=== PATIENT | male | born 1955 | race Caucasian/White ===

== ENCOUNTER 2018-09-04 10:24 | Emergency (ER) | payer BC ==
--- NOTE | 2018-09-04 10:38 | EDM.PDOC ---
ED HPI GENERAL MEDICAL PROBLEM - General Chief Complaint: Chest Pain Stated Complaint: RT SIDE AND SHOULDER PAIN Time Seen by Provider: 09/04/18 10:38 Source of Information: Reports: Patient History Limitations: Reports: No Limitations - History of Present Illness INITIAL COMMENTS - FREE TEXT/NARRATIVE: 62-year-old male attends the ED because of right lower anterior lateral chest pain that started yesterday morning that awoke him from sleep. States the pain started along his right lower costal margin seemed to radiate up towards his right shoulder. Pain is somewhat better when he is up and walking it's worse with lying down. To sleep in the easy chair last night because the pain was too bad when he lied down. There is a pleuritic component to the pain I eats made worse by deep breathing. He reports that he's been on a very fast tripped down to [place]. States 2 days down 2 days then 2 days back. Has not no cine swelling or pain in his calves or legs. No previous history of DVT. Denies cough or sputum production and in particular no hemoptysis. States he thinks he had had some chills last night. No fever identified. Vital signs reveal O2 sats of 95% on room air. He used to smoke for about 18 years and quit in 1991. He has significant hypertension and hypercholesterolemia with no known heart attack or heart failure Onset: Sudden Onset Date: 09/03/18 Onset Time: 04:00 (Awoken from sleep with right anterior lateral chest pain that radiates up to the right shoulder. Worsens by deep breathing) Duration: Hour(s):, Getting Worse Location: Reports: Chest (Right anterior lower chest.) Quality: Reports: Ache, Sharp, Stabbing Severity: Moderate (Rates his pain is 6-710) Improves with: Reports: Rest, Other (Is also better presupper and walking.) Worsens with: Reports: Other (Worsens when he lies flat. States he had to sleep in the easy chair last night) Context: Denies: Activity, Exercise, Lifting, Sick Contact, Trauma, Other Associated Symptoms: Reports: Chest Pain, Fever/Chills, Shortness of Breath ( Very mildly shortness of breath when he lies down.). 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: Other (see below) (None.) Right Chest Pain Score (Numeric/FACES): 6 Right Anterior Shoulder Pain Score (Numeric/FACES): 6 - Related Data Allergies Allergy/AdvReac Type Severity Reaction Status Date / Time No Known Allergies Allergy Verified 09/04/18 10:36 Home Meds: Home Meds Losartan/Hydrochlorothiazide [Losartan-HCTZ 50-12.5 MG] 1 tab PO DAILY 09/04/18 [History] Metoprolol Succinate 100 mg PO DAILY 09/04/18 [History] Rivaroxaban [Xarelto] 15 mg PO BID #42 tablet 09/04/18 [Rx] Rivaroxaban [Xarelto] 20 mg PO DAILY #35 tablet 09/04/18 [Rx] amLODIPine [Norvasc] 10 mg PO DAILY 09/04/18 [History] atorvaSTATin [Lipitor] 10 mg PO BEDTIME 09/04/18 [History] oxyCODONE HCl/Acetaminophen [Percocet 5-325 mg Tablet] 1 - 2 each PO Q4H PRN # 16 tablet 09/04/18 [Rx] Past Medical History Cardiovascular History: Reports: High Cholesterol, Hypertension Musculoskeletal History: Reports: Osteoarthritis (Mostly involving his hands knees hips and low back) Social & Family History - Tobacco Use Smoking Status *Q: Former Smoker Tobacco Use Within Last Twelve Months: Cigarettes (Quit in 1991. Has an 18-pack- year history) - Alcohol Use Alcohol Use History: Yes ED ROS GENERAL - Review of Systems Review Of Systems: See Below Constitutional: Reports: Chills. Denies: Fever, Malaise (Reported some chills last night), Weakness, Decreased Appetite HEENT: Reports: No Symptoms Respiratory: Reports: Shortness of Breath, Pleuritic Chest Pain (Strong pleuritic component to his right anterior lateral chest pain). Denies: Wheezing (Mild shortness of breath particularly noted when he's lying down.), Cough, Sputum, Hemoptysis Cardiovascular: Reports: Chest Pain, Blood Pressure Problem (Right anterior lateral chest pain along the costal margin which radiates up towards the right shoulder.), Dyspnea on Exertion, Orthopnea ( Hypertension.). Denies: Claudication, Edema, Lightheadedness, Palpitations Endocrine: Reports: No Symptoms GI/Abdominal: Reports: No Symptoms : Reports: Frequency, Other (Bacteria once or twice nightly) Musculoskeletal: Reports: Joint Pain (Knees hips low back at times), Muscle Pain Neurological: Reports: No Symptoms Psychiatric: Reports: No Symptoms Hematologic/Lymphatic: Reports: No Symptoms Immunologic: Reports: No Symptoms ED EXAM, GENERAL - Physical Exam Exam: See Below Exam Limited By: No Limitations General Appearance: Alert, WD/WN, Mild Distress, Other (Respiratory is 18 O2 sats are 95% on room air. BP is a little elevated at 1 6174. He is afebrile. Heart rate is 86 in sinus.) Eye Exam: Bilateral Eye: Normal Inspection Throat/Mouth: Normal Inspection, Normal Lips, Normal Oropharynx Head: Atraumatic, Normocephalic Neck: Normal Inspection, Supple, Non-Tender, Full Range of Motion. No: Carotid Bruit, Lymphadenopathy (L), Lymphadenopathy (R), Thyromegaly Respiratory/Chest: No Respiratory Distress, Lungs Clear, Normal Breath Sounds, No Accessory Muscle Use, Chest Non-Tender Cardiovascular: Normal Peripheral Pulses, Regular Rate, Rhythm, No Edema, No Gallop, No Murmur, No Rub Peripheral Pulses: 2+: Posterior Tibial (L), Posterior Tibial (R), Dorsalis Pedis (L), Dorsalis Pedis (R) GI/Abdominal: Normal Bowel Sounds, Soft, Non-Tender, No Organomegaly, No Abnormal Bruit, No Mass, Pelvis Stable (Male) Exam: No Hernia Back Exam: Normal Inspection, Full Range of Motion. No: CVA Tenderness (L), CVA Tenderness (R) Extremities: Normal Inspection, Normal Range of Motion, Non-Tender, No Pedal Edema, Normal Capillary Refill, Other (There is no evidence of DVT in the calf on either side. There is no edema swelling or localized pain) Psychiatric: Normal Affect, Normal Mood Skin Exam: Warm, Dry, Intact, Normal Color, No Rash EKG INTERPRETATION EKG Date: 09/04/18 Time: 11:23 Rhythm: NSR Rate (Beats/Min): 67 [place]: LAD-Left [place] Deviation (Left axis deviation of -19) P-Wave: Present (Inverted in V1.) QRS: Other (There are Q waves in leads 3 and aVF. Consider old inferior wall myocardial infarction.) ST-T: Other (There is T-wave inversion one in aVL consider ischemia) QT: Prolonged EKG Interpretation Comments: Abnormal ECG Course - Vital Signs Last Recorded V/S: Last Vital Signs Temp 36.7 C 09/04/18 10:32 Pulse 86 09/04/18 10:32 Resp 18 09/04/18 10:32 BP 161/74 H 09/04/18 10:32 Pulse Ox 95 09/04/18 10:32 - Orders/Labs/Meds Labs: Laboratory Tests 09/04/18 09/04/18 09/04/18 Range/Units 11:00 11:00 11:00 WBC 9.69 H (4.23-9.07) K/mm3 RBC 4.32 L (4.63-6.08) M/mm3 Hgb 13.7 (13.7-17.5) gm/L Hct 41.7 (40.1-51.0) % MCV 96.5 H (79.0-92.2) fl MCH 31.7 (25.7-32.2) pg MCHC 32.9 (32.2-35.5) g/dl RDW Std Deviation 43.9 (35.1-43.9) fL Plt Count 224 (163-337) K/mm3 MPV 10.3 (9.4-12.3) fl Neutrophils % (Manual) 79 H (40-60) % Band Neutrophils % 0 (0-10) % Lymphocytes % (Manual) 11 L (20-40) % Atypical Lymphs % 0 % Monocytes % (Manual) 9 (2-10) % Eosinophils % (Manual) 1 (0.8-7.0) % Basophils % (Manual) 0 L (0.2-1.2) Platelet Estimate Adequate RBC Morph Comment Normal PT 11.2 (9.5-12.1) SECONDS INR 1.03 APTT 32 H (24-31) SECONDS D-Dimer, Quantitative 2.66 H (0.19-0.50) mg/L Functional Protein C (73-180) % Functional Protein S (63-140) % Antithrombin III Activ (75-135) % Sodium 140 (136-145) mEq/L Potassium 3.9 (3.5-5.1) mEq/L Chloride 103 (98-107) mEq/L Carbon Dioxide 21 (21-32) mEq/L Anion Gap 19.9 H (5-15) BUN 26 H (7-18) mg/dL Creatinine 1.7 H (0.7-1.3) mg/dL Est Cr Clr Drug Dosing 45.05 mL/min Estimated GFR (MDRD) 41 (>60) mL/min BUN/Creatinine Ratio 15.3 (14-18) Glucose 114 (80-115) mg/dL Calcium 9.0 (8.5-10.1) mg/dL Magnesium 2.1 (1.8-2.4) mg/dl Total Bilirubin 0.9 (0.2-1.0) mg/dL AST 22 (15-37) U/L ALT 27 (16-63) U/L Alkaline Phosphatase 76 (46-116) U/L Lactate Dehydrogenase (85-227) U/L CK-MB (CK-2) 1.0 (0-3.6) ng/ml Troponin I < 0.017 (0.00-0.056) ng/mL NT-Pro-B Natriuret Pep (0-125) pg/mL Total Protein 8.4 H (6.4-8.2) g/dl Albumin 3.4 (3.4-5.0) g/dl Globulin 5.0 gm/dL Albumin/Globulin Ratio 0.7 L (1-2) Ketones (0.0-0.3) mM Anti-Cardiolipin IgG Ab (0-14) GPL U/mL 09/04/18 09/04/18 09/04/18 Range/Units 11:00 11:00 11:00 WBC (4.23-9.07) K/mm3 RBC (4.63-6.08) M/mm3 Hgb (13.7-17.5) gm/L Hct (40.1-51.0) % MCV (79.0-92.2) fl MCH (25.7-32.2) pg MCHC (32.2-35.5) g/dl RDW Std Deviation (35.1-43.9) fL Plt Count (163-337) K/mm3 MPV (9.4-12.3) fl Neutrophils % (Manual) (40-60) % Band Neutrophils % (0-10) % Lymphocytes % (Manual) (20-40) % Atypical Lymphs % % Monocytes % (Manual) (2-10) % Eosinophils % (Manual) (0.8-7.0) % Basophils % (Manual) (0.2-1.2) Platelet Estimate RBC Morph Comment PT (9.5-12.1) SECONDS INR APTT (24-31) SECONDS D-Dimer, Quantitative (0.19-0.50) mg/L Functional Protein C (73-180) % Functional Protein S (63-140) % Antithrombin III Activ (75-135) % Sodium (136-145) mEq/L Potassium (3.5-5.1) mEq/L Chloride (98-107) mEq/L Carbon Dioxide (21-32) mEq/L Anion Gap (5-15) BUN (7-18) mg/dL Creatinine (0.7-1.3) mg/dL Est Cr Clr Drug Dosing mL/min Estimated GFR (MDRD) (>60) mL/min BUN/Creatinine Ratio (14-18) Glucose (80-115) mg/dL Calcium (8.5-10.1) mg/dL Magnesium (1.8-2.4) mg/dl Total Bilirubin (0.2-1.0) mg/dL AST (15-37) U/L ALT (16-63) U/L Alkaline Phosphatase (46-116) U/L Lactate Dehydrogenase 268 H (85-227) U/L CK-MB (CK-2) (0-3.6) ng/ml Troponin I (0.00-0.056) ng/mL NT-Pro-B Natriuret Pep 365 H (0-125) pg/mL Total Protein (6.4-8.2) g/dl Albumin (3.4-5.0) g/dl Globulin gm/dL Albumin/Globulin Ratio (1-2) Ketones 0.2 (0.0-0.3) mM Anti-Cardiolipin IgG Ab (0-14) GPL U/mL 09/04/18 09/04/18 09/04/18 Range/Units 13:58 13:58 13:58 WBC (4.23-9.07) K/mm3 RBC (4.63-6.08) M/mm3 Hgb (13.7-17.5) gm/L Hct (40.1-51.0) % MCV (79.0-92.2) fl MCH (25.7-32.2) pg MCHC (32.2-35.5) g/dl RDW Std Deviation (35.1-43.9) fL Plt Count (163-337) K/mm3 MPV (9.4-12.3) fl Neutrophils % (Manual) (40-60) % Band Neutrophils % (0-10) % Lymphocytes % (Manual) (20-40) % Atypical Lymphs % % Monocytes % (Manual) (2-10) % Eosinophils % (Manual) (0.8-7.0) % Basophils % (Manual) (0.2-1.2) Platelet Estimate RBC Morph Comment PT (9.5-12.1) SECONDS INR APTT (24-31) SECONDS D-Dimer, Quantitative (0.19-0.50) mg/L Functional Protein C 76 (73-180) % Functional Protein S (63-140) % Antithrombin III Activ 95 (75-135) % Sodium (136-145) mEq/L Potassium (3.5-5.1) mEq/L Chloride (98-107) mEq/L Carbon Dioxide (21-32) mEq/L Anion Gap (5-15) BUN (7-18) mg/dL Creatinine (0.7-1.3) mg/dL Est Cr Clr Drug Dosing mL/min Estimated GFR (MDRD) (>60) mL/min BUN/Creatinine Ratio (14-18) Glucose (80-115) mg/dL Calcium (8.5-10.1) mg/dL Magnesium (1.8-2.4) mg/dl Total Bilirubin (0.2-1.0) mg/dL AST (15-37) U/L ALT (16-63) U/L Alkaline Phosphatase (46-116) U/L Lactate Dehydrogenase (85-227) U/L CK-MB (CK-2) (0-3.6) ng/ml Troponin I (0.00-0.056) ng/mL NT-Pro-B Natriuret Pep (0-125) pg/mL Total Protein (6.4-8.2) g/dl Albumin (3.4-5.0) g/dl Globulin gm/dL Albumin/Globulin Ratio (1-2) Ketones (0.0-0.3) mM Anti-Cardiolipin IgG Ab <9 (0-14) GPL U/mL 09/04/18 Range/Units 13:58 WBC (4.23-9.07) K/mm3 RBC (4.63-6.08) M/mm3 Hgb (13.7-17.5) gm/L Hct (40.1-51.0) % MCV (79.0-92.2) fl MCH (25.7-32.2) pg MCHC (32.2-35.5) g/dl RDW Std Deviation (35.1-43.9) fL Plt Count (163-337) K/mm3 MPV (9.4-12.3) fl Neutrophils % (Manual) (40-60) % Band Neutrophils % (0-10) % Lymphocytes % (Manual) (20-40) % Atypical Lymphs % % Monocytes % (Manual) (2-10) % Eosinophils % (Manual) (0.8-7.0) % Basophils % (Manual) (0.2-1.2) Platelet Estimate RBC Morph Comment PT (9.5-12.1) SECONDS INR APTT (24-31) SECONDS D-Dimer, Quantitative (0.19-0.50) mg/L Functional Protein C (73-180) % Functional Protein S 98 (63-140) % Antithrombin III Activ (75-135) % Sodium (136-145) mEq/L Potassium (3.5-5.1) mEq/L Chloride (98-107) mEq/L Carbon Dioxide (21-32) mEq/L Anion Gap (5-15) BUN (7-18) mg/dL Creatinine (0.7-1.3) mg/dL Est Cr Clr Drug Dosing mL/min Estimated GFR (MDRD) (>60) mL/min BUN/Creatinine Ratio (14-18) Glucose (80-115) mg/dL Calcium (8.5-10.1) mg/dL Magnesium (1.8-2.4) mg/dl Total Bilirubin (0.2-1.0) mg/dL AST (15-37) U/L ALT (16-63) U/L Alkaline Phosphatase (46-116) U/L Lactate Dehydrogenase (85-227) U/L CK-MB (CK-2) (0-3.6) ng/ml Troponin I (0.00-0.056) ng/mL NT-Pro-B Natriuret Pep (0-125) pg/mL Total Protein (6.4-8.2) g/dl Albumin (3.4-5.0) g/dl Globulin gm/dL Albumin/Globulin Ratio (1-2) Ketones (0.0-0.3) mM Anti-Cardiolipin IgG Ab (0-14) GPL U/mL Meds: Medications Discontinued Medications Generic Name Dose Route Start Last Admin Trade Name Brandanq PRN Reason Stop Dose Admin Enoxaparin Sodium 115 mg 09/04/18 13:35 09/04/18 14:09 Lovenox SUBCUT 09/04/18 13:36 115 mg ONETIME ONE Administration Sodium Chloride 1,000 mls @ 150 mls/hr 09/04/18 10:45 09/04/18 11:05 Normal Saline IV 150 mls/hr ASDIRECTED MARIELA Administration Sodium Chloride 1,000 mls @ 500 mls/hr 09/04/18 12:15 Normal Saline IV ASDIRECTED MARIELA Sodium Chloride 100 mls @ 60 mls/hr 09/04/18 12:30 09/04/18 12:30 Normal Saline IV 60 mls/hr ASDIRECTED MARIELA Administration Iohexol 75 ml 09/04/18 12:18 09/04/18 12:30 Omnipaque IVPUSH 09/04/18 12:19 75 ml ONETIME ONE Administration Sodium Chloride 10 ml 09/04/18 12:18 09/04/18 12:30 Saline Flush FLUSH 09/04/18 12:19 10 ml ONETIME ONE Administration - Radiology Interpretation Free Text/Narrative:: 62-year-old male presents to the ED for evaluation of right anterior lateral chest pain with a strong pleuritic component. This has occurred after an aggressive trip in a car to [place] and back within 5 days. States the day and a half to get their 2 days there and 2 days to come back. He woke with right anterior lateral chest pain along the costal margin yesterday morning about 4: 00 in the morning and is persisted since that time. Last and it was worse and he could not lie flat on a orthopnea. He had a set up in the easy chair last night to sleep. Denies development of any cough or sputum production or hemoptysis. He has no past history of DVT. Chest pain is along the right costal margin and radiates up towards his right shoulder particularly when he lies down. It is worsened by deep breath. No evidence of DVT on examination of the lower extremities. His stream is strongly suggestive of possible PE. O2 sats are 95% on room air. Plan routine labs including d-dimer cardiac markers. He will also be done since he has a history of severe hypertension for many years. One view chest x-ray will be obtained and ECG. - Re-Assessments/Exams Free Text/Narrative Re-Assessment/Exam: 09/04/18 11:33 chest x-ray done portably reveals a very poor inspiratory film. He appears to have moderate cardiomegaly. It appears to have diffuse vascular congestion by portable technique again less than satisfactory exam. 09/04/18 11:37 lab called over and his d-dimer is elevated at 2.66. Will await his renal function but it. We will be proceeding with CT pulmonary angiogram 09/04/18 12:07 WBC is 9.69 with 79% neutrophils and no band cells hemoglobin is 13.7 with hematocrit of 41.7. MCV is 96.5. Platelet count is 224,000. PT is 11.2 with an INR of 1.03. PTT is 32. D-dimer is elevated at 2.66. Sodium was 140 with potassium of 3.9. Toward 103 with a bicarbonate of 21. Anion gap is elevated at 19.9. BUN is 26. Ranitidine is 1.7. GFR is 41 a stage III chronic kidney disease. Glucose is 114. Calcium is 9.0. Magnesium is 2.1. Liver function is normal CK-MB is 1.0 troponin I is less than 0.017. BNP is mildly elevated at 365. Total protein is 8.4. Albumin fraction is 3.4. 09/04/18 12:48 serum ketones are 0.2 normal. LDH is mildly elevated at 268. 09/04/18 13:36 radiologist reports that there is a small filling defect seen within a subsegmental branch of the right lower pulmonary artery which is felt compatible with small pulmonary embolism. Mediastinum and hilar regions show adenopathy or mass. Mild coronary artery calcification is noted a pericardial thickening is seen trace pleural effusion noted on the right side with mild atelectasis within the right lung base. This is likely because he is splinting. He will therefore be given initial dose of Lovenox 115 mg subcutaneously in the ED. The plan will then be to start him on Xarelto 15 mg twice daily for 3 weeks and then 20 mg once daily to complete a minimum of 3 months treatment. He'll have his labs drawn for protein S, protein C, cardiolipin antibodies, anti- thrombin etc. I'm going to send him home with some Percocet tablets to be used on a when necessary basis due to the nature of his right pleuritic chest pain suggesting that he may be developing a pulmonary infarct. His LDH is only slightly elevated. However he can't lie flat due to the severity of pain indicating the pleura is definitely involved. Use these when not at work and until the pleuritic pain settles down. Advised him to follow-up with Dr. Foy in about 10 days time. Departure - Departure Time of Disposition: 13:45 Disposition: Home, Self-Care 01 Condition: Fair Clinical Impression: Pulmonary embolism and infarction Prescriptions: oxyCODONE HCl/Acetaminophen [Percocet 5-325 mg Tablet] 1 - 2 each PO Q4H PRN # 16 tablet PRN Reason: pain relief. Rivaroxaban [Xarelto] 15 mg PO BID #42 tablet Rivaroxaban [Xarelto] 20 mg PO DAILY #35 tablet Instructions: Pulmonary Embolism Referrals: Abiodun Conti MD [Primary Care Provider] - Forms: ED Department Discharge Additional Instructions: Evaluation the emergent today in regards to development of strong pleuritic sharp stabbing pain in the right lower lung anterior chest over the last 2 days. Recent travel to [place] and back driving pretty well straight through likely was the cause of the development of a blood clot that we identified on CT angiogram of the chest in your right lower lobe of lung. Is far as we could see there was only one blood clot. There was a little bit of inflammation or fluid in the bottom of the right lung which is causing your current pain syndrome. Therefore clinically was no evidence of blood clot in your lower extremity although almost all clots come from somewhere in the legs and get up into the lung from the lower extremities. You were treated with initial dose of blood thinner low Lovenox 150 mg subcutaneously. You are to start medication Xarelto-15 mg after supper tonight. Is medication is to be taken twice daily for the next 3 weeks and then after this you're to take 20 mg tablet for the next 2 months. I've written a prescription for Percocet tablets to be taken 5/ 325 mg one or 2 every 4-6 hours as needed when you are not operating a motor vehicle or machinery to help reduce the pain in the right lung until it can heal. It will likely be a week or so before the sharp pain goes away completely. Just follow-up with Dr. Foy in about 10 days time. I have also ordered other blood tests to check whether or not to have a predisposition to forming a blood clot that will help us determine length of need of medication to prevent clotting.
[2018-09-04] MEDS ORDERED: Sodium Chloride 0.9% 1,000 ML IV SCH ×2 (10:45→12:15)
[2018-09-04] MEDS ORDERED: Sodium Chloride 0.9% 10 ML Syringe FLUSH ONE (12:18)
[2018-09-04] MEDS ORDERED: Iohexol 350 MG/ML 75 ML Bottle IVPUSH ONE (12:18)
[2018-09-04] MEDS ORDERED: Sodium Chloride 0.9% 100 ML IV SCH (12:30)
--- NOTE | 2018-09-04 13:00 | CT ---
CT chest Technique: Multiple axial sections through the chest were obtained. Intravenous contrast was utilized. Comparison: Prior chest x-ray performed earlier on the same day, no previous chest CT. Findings: Pulmonary arteries are moderately well-opacified. Small filling defect is seen within a subsegmental branch of the right lower pulmonary artery which is felt compatible with small pulmonary embolism. No other findings of pulmonary embolism are seen. Mediastinum and hilar regions show no adenopathy or mass. Mild coronary artery calcification is noted. No pericardial thickening is seen. Trace pleural effusion noted on the right side with mild atelectasis within the right lung base. Lungs otherwise are clear. Bone window settings show scattered degenerative endplate spurring within the spine. Impression: 1. Small pulmonary embolism within a subsegmental branch within the right lower lung. 2. Small right-sided pleural effusion and right basilar atelectasis. 3. No additional abnormality is seen. Diagnostic code #3
[2018-09-04] MEDS ORDERED: Enoxaparin 100 MG/1 ML Syringe SUBCUT ONE (13:35)
--- NOTE | 2018-09-04 13:48 | CR ---
Chest: Portable view of the chest was obtained. Comparison: No prior chest x-ray. Heart size and mediastinum are normal. Lungs are clear. Bony structures are grossly intact. Pressure: 1. Nothing acute is identified on portable chest x-ray. Diagnostic code #1
== END 2018-09-04 14:15 | disposition home or self-care (01) ==
LOC: JD.ED 10:24
DX: I26.99 Other pulmonary embolism without acute cor pulmonale (principal); I10 Essential (primary) hypertension; E78.00 Pure hypercholesterolemia, unspecified; Z87.891 Personal history of nicotine dependence; Z79.899 Other long term (current) drug therapy
CPT/HCPCS: 36415; 71045; 71275; 80053; 81241; 82009; 82553; 83615; 83735; 83880; 84484; 85007; 85027; 85300; 85303; 85306; 85379; 85610; 85730; 86147; 93005; 96360; 96361; 96372; 99284; J1650; J7030; J7040; Q9967

== ENCOUNTER 2019-01-08 14:13 | Emergency (ER) | payer BC ==
--- NOTE | 2019-01-08 14:25 | EDM.PDOC ---
<GuzmanHenry - Last Filed: 01/08/19 14:55> ED HPI GENERAL MEDICAL PROBLEM - General Chief Complaint: General Stated Complaint: WEAK,SOB Time Seen by Provider: 01/08/19 14:23 Source of Information: Reports: Patient History Limitations: Reports: No Limitations - History of Present Illness INITIAL COMMENTS - FREE TEXT/NARRATIVE: Pt presents to ED today with complaint of fatigue. Pt states that for the past 2 weeks he has been feeling progressively more fatigued. Pt states that he has had similar episodes in the past but they have never lasted this long. Pt reports that he has not been sleeping well. Pt does not feel like he has been ill recently. States he had chills for one day last week. Has lost some weight but feels that his was intentional as he has been eating healthier. Pt reports dizziness upon standing up and that his vision gets 'bright'. He feels lightheaded during these episodes. Pt reports SOB on exertion as well. No nausea , vomiting, diarrhea. No body aches. No chest pain. Onset: Gradual Duration: Week(s): - Related Data Allergies Allergy/AdvReac Type Severity Reaction Status Date / Time No Known Allergies Allergy Verified 01/08/19 14:23 Home Meds: Home Meds Metoprolol Succinate 100 mg PO DAILY 09/04/18 [History] amLODIPine [Norvasc] 10 mg PO DAILY 09/04/18 [History] atorvaSTATin [Lipitor] 10 mg PO BEDTIME 09/04/18 [History] Losartan/Hydrochlorothiazide [Losartan-HCTZ 100-12.5 MG] 1 each PO DAILY [History] ED ROS GENERAL - Review of Systems Review Of Systems: See Below Constitutional: Reports: Chills, Fatigue HEENT: Reports: No Symptoms Cardiovascular: Reports: Dyspnea on Exertion, Lightheadedness Endocrine: Reports: No Symptoms GI/Abdominal: Reports: No Symptoms Musculoskeletal: Reports: No Symptoms Skin: Reports: No Symptoms Neurological: Reports: Dizziness Psychiatric: Reports: No Symptoms Hematologic/Lymphatic: Reports: No Symptoms Immunologic: Reports: No Symptoms ED EXAM, GENERAL - Physical Exam Exam: See Below Exam Limited By: No Limitations General Appearance: Alert, No Apparent Distress Eye Exam: Bilateral Eye: Normal Inspection Ears: Normal External Exam Nose: Normal Inspection Throat/Mouth: Normal Inspection Head: Atraumatic, Normocephalic Neck: Normal Inspection, Supple, Non-Tender, Full Range of Motion. No: Thyromegaly Respiratory/Chest: No Respiratory Distress, Lungs Clear, Normal Breath Sounds, No Accessory Muscle Use. No: Crackles, Rales, Rhonchi, Wheezing Cardiovascular: Normal Peripheral Pulses, Regular Rate, Rhythm, No Edema, Systolic Murmur GI/Abdominal: Normal Bowel Sounds, Soft, Non-Tender, No Organomegaly, Distended Extremities: Normal Inspection, Non-Tender, No Pedal Edema. No: Joint Swelling Neurological: Alert, Oriented, CN II-XII Intact, Normal Cognition, No Motor/ Sensory Deficits Psychiatric: Normal Affect, Normal Mood Skin Exam: Warm, Dry, Intact, Normal Color, No Rash Course - Vital Signs Last Recorded V/S: Last Vital Signs Temp 98.9 F 01/08/19 14: Pulse 95 01/08/19 14:19 Resp 16 01/08/19 14:19 BP 124/58 L 01/08/19 14: Pulse Ox 100 01/08/19 14:19 - Orders/Labs/Meds Orders: Active Orders 24 hr Category Date Time Status Cardiac Monitoring [RC] . DIRECTED Care 01/08/19 15:12 Active EKG Documentation Completion [RC] STAT Care 01/08/19 15:13 Active Peripheral IV Care [RC] . DIRECTED Care 01/08/19 16:02 Active Ang Chest [CT] Stat Exams 01/08/19 16:02 Taken Sodium Chloride 0.9% [Normal Saline] 100 ml Med 01/08/19 16:30 Active IV ASDIRECTED Sodium Chloride 0.9% [Saline Flush] Med 01/08/19 16:02 Active 10 ml FLUSH ASDIRECTED PRN Peripheral IV Insertion Adult [OM.PC] Routine Oth 01/08/19 16:02 Ordered Medication Orders Sodium Chloride (Normal Saline) 100 mls @ 60 mls/hr IV ASDIRECTED MARIELA Sodium Chloride (Saline Flush) 10 ml FLUSH ASDIRECTED PRN PRN Reason: Keep Vein Open Last Admin: 01/08/19 16:40 Dose: 10 ml Labs: Laboratory Tests 01/08/19 01/08/19 01/08/19 Range/Units 15:25 15:25 15:25 WBC 6.23 (4.23-9.07) K/mm3 RBC 3.88 L (4.63-6.08) M/mm3 Hgb 12.0 L D (13.7-17.5) gm/L Hct 36.4 L (40.1-51.0) % MCV 93.8 H (79.0-92.2) fl MCH 30.9 (25.7-32.2) pg MCHC 33.0 (32.2-35.5) g/dl RDW Std Deviation 50.6 H (35.1-43.9) fL Plt Count 274 (163-337) K/mm3 MPV 9.5 (9.4-12.3) fl Neut % (Auto) 66.0 (34.0-67.9) % Lymph % (Auto) 13.3 L (21.8-53.1) % Trigg % (Auto) 18.8 H (5.3-12.2) % Eos % (Auto) 0.8 (0.8-7.0) Baso % (Auto) 0.8 (0.1-1.2) % Neut # (Auto) 4.11 (1.78-5.38) K/mm3 Lymph # (Auto) 0.83 L (1.32-3.57) K/mm3 Trigg # (Auto) 1.17 H (0.30-0.82) K/mm3 Eos # (Auto) 0.05 (0.04-0.54) K/mm3 Baso # (Auto) 0.05 (0.01-0.08) K/mm3 Manual Slide Review Abnormal smear D-Dimer, Quantitative 3.34 H (0.19-0.50) mg/L Sodium 135 L (136-145) mEq/L Potassium 4.0 (3.5-5.1) mEq/L Chloride 103 (98-107) mEq/L Carbon Dioxide 20 L (21-32) mEq/L Anion Gap 16.0 H (5-15) BUN 63 H D (7-18) mg/dL Creatinine 2.3 H (0.7-1.3) mg/dL Est Cr Clr Drug Dosing 32.87 mL/min Estimated GFR (MDRD) 29 (>60) mL/min BUN/Creatinine Ratio 27.4 H (14-18) Glucose 101 (80-115) mg/dL Calcium 8.7 (8.5-10.1) mg/dL Magnesium 2.2 (1.8-2.4) mg/dl Total Bilirubin 0.6 (0.2-1.0) mg/dL AST 91 H (15-37) U/L ALT 127 H (16-63) U/L Alkaline Phosphatase 59 (46-116) U/L Troponin I < 0.017 (0.00-0.056) ng/mL NT-Pro-B Natriuret Pep (0-125) pg/mL Total Protein 7.5 (6.4-8.2) g/dl Albumin 2.4 L (3.4-5.0) g/dl Globulin 5.1 gm/dL Albumin/Globulin Ratio 0.5 L (1-2) TSH 3rd Generation 2.361 (0.358-3.74) uIU/mL Urine Color (Yellow) Urine Appearance (Clear) Urine pH (5.0-8.0) Ur Specific [place] (1.005-1.030) Urine Protein (Negative) Urine Glucose (UA) (Negative) Urine Ketones (Negative) Urine Occult Blood (Negative) Urine Nitrite (Negative) Urine Bilirubin (Negative) Urine Urobilinogen (0.2-1.0) Ur Leukocyte Esterase (Negative) Urine RBC (0-5) /hpf Urine WBC (0-5) /hpf Ur Squamous Epith Cells (0-5) /hpf Urine Bacteria (FEW) /hpf Urine Mucus (FEW) /hpf 01/08/19 01/08/19 Range/Units 15:25 17:33 WBC (4.23-9.07) K/mm3 RBC (4.63-6.08) M/mm3 Hgb (13.7-17.5) gm/L Hct (40.1-51.0) % MCV (79.0-92.2) fl MCH (25.7-32.2) pg MCHC (32.2-35.5) g/dl RDW Std Deviation (35.1-43.9) fL Plt Count (163-337) K/mm3 MPV (9.4-12.3) fl Neut % (Auto) (34.0-67.9) % Lymph % (Auto) (21.8-53.1) % Trigg % (Auto) (5.3-12.2) % Eos % (Auto) (0.8-7.0) Baso % (Auto) (0.1-1.2) % Neut # (Auto) (1.78-5.38) K/mm3 Lymph # (Auto) (1.32-3.57) K/mm3 Trigg # (Auto) (0.30-0.82) K/mm3 Eos # (Auto) (0.04-0.54) K/mm3 Baso # (Auto) (0.01-0.08) K/mm3 Manual Slide Review D-Dimer, Quantitative (0.19-0.50) mg/L Sodium (136-145) mEq/L Potassium (3.5-5.1) mEq/L Chloride (98-107) mEq/L Carbon Dioxide (21-32) mEq/L Anion Gap (5-15) BUN (7-18) mg/dL Creatinine (0.7-1.3) mg/dL Est Cr Clr Drug Dosing mL/min Estimated GFR (MDRD) (>60) mL/min BUN/Creatinine Ratio (14-18) Glucose (80-115) mg/dL Calcium (8.5-10.1) mg/dL Magnesium (1.8-2.4) mg/dl Total Bilirubin (0.2-1.0) mg/dL AST (15-37) U/L ALT (16-63) U/L Alkaline Phosphatase (46-116) U/L Troponin I (0.00-0.056) ng/mL NT-Pro-B Natriuret Pep 517 H (0-125) pg/mL Total Protein (6.4-8.2) g/dl Albumin (3.4-5.0) g/dl Globulin gm/dL Albumin/Globulin Ratio (1-2) TSH 3rd Generation (0.358-3.74) uIU/mL Urine Color Light yellow (Yellow) Urine Appearance Clear (Clear) Urine pH 6.0 (5.0-8.0) Ur Specific [place] 1.010 (1.005-1.030) Urine Protein Negative (Negative) Urine Glucose (UA) Negative (Negative) Urine Ketones Negative (Negative) Urine Occult Blood Trace-lysed H (Negative) Urine Nitrite Negative (Negative) Urine Bilirubin Negative (Negative) Urine Urobilinogen 0.2 (0.2-1.0) Ur Leukocyte Esterase Negative (Negative) Urine RBC 0-5 (0-5) /hpf Urine WBC 0-5 (0-5) /hpf Ur Squamous Epith Cells 0-5 (0-5) /hpf Urine Bacteria Not seen (FEW) /hpf Urine Mucus Not seen (FEW) /hpf Meds: Medications Generic Name Dose Route Start Last Admin Trade Name Freq PRN Reason Stop Dose Admin Sodium Chloride 100 mls @ 60 mls/hr 01/08/19 16:30 Normal Saline IV ASDIRECTED MARIELA Sodium Chloride 10 ml 01/08/19 16:02 01/08/19 16:40 Saline Flush FLUSH 10 ml ASDIRECTED PRN Administration Keep Vein Open Discontinued Medications Generic Name Dose Route Start Last Admin Trade Name Freq PRN Reason Stop Dose Admin Sodium Chloride 1,000 mls @ 1,000 mls/hr 01/08/19 16:59 01/08/19 17:29 Normal Saline IV 01/08/19 17:58 1,000 mls/hr ONETIME ONE Administration Iopamidol 100 ml 01/08/19 16:19 01/08/19 16:40 Isovue-370 (76%) IVPUSH 01/08/19 16:20 100 ml ONETIME ONE Administration Sodium Chloride 10 ml 01/08/19 16:19 Saline Flush FLUSH 01/08/19 16:20 ONETIME ONE - Re-Assessments/Exams Free Text/Narrative Re-Assessment/Exam: 01/08/19 15:18 Will order labs, D-dimer, BNP, TSH. Orthostatic vitals and EKG as well. Departure - Departure Disposition: Home, Self-Care 01 Clinical Impression: Renal insufficiency, Generalized weakness, Heart murmur - Discharge Information Referrals: Abiodun Conti MD [Primary Care Provider] - 1 Week Nino Beaulieu MD [Ordering Only Provider] - Forms: ED Department Discharge Additional Instructions: Drink plenty of fluids Try to drink 8 eight ounce glasses of water daily. Follow up with Dr Conti within a week to have your kidneys rechecked. Follow up with Dr Beaulieu or one of his partners at [facility]. Please return if you are worse. - My Orders Last 24 Hours: My Active Orders 01/08/19 15:12 Cardiac Monitoring [RC] . DIRECTED 01/08/19 15:13 EKG Documentation Completion [RC] STAT 01/08/19 16:02 Peripheral IV Care [RC] . DIRECTED Ang Chest [CT] Stat Sodium Chloride 0.9% [Saline Flush] 10 ml FLUSH ASDIRECTED PRN Peripheral IV Insertion Adult [OM.PC] Routine 01/08/19 16:30 Sodium Chloride 0.9% [Normal Saline] 100 ml IV ASDIRECTED - Assessment/Plan Last 24 Hours: My Active Orders 01/08/19 15:12 Cardiac Monitoring [RC] . DIRECTED 01/08/19 15:13 EKG Documentation Completion [RC] STAT 01/08/19 16:02 Peripheral IV Care [RC] . DIRECTED Ang Chest [CT] Stat Sodium Chloride 0.9% [Saline Flush] 10 ml FLUSH ASDIRECTED PRN Peripheral IV Insertion Adult [OM.PC] Routine 01/08/19 16:30 Sodium Chloride 0.9% [Normal Saline] 100 ml IV ASDIRECTED <Duran Acosta - Last Filed: 01/08/19 18:09> ED HPI GENERAL MEDICAL PROBLEM - History of Present Illness Severity: Mild Improves with: Reports: None Worsens with: Reports: None Associated Symptoms: Denies: Chest Pain, Cough, Fever/Chills, Headaches, Nausea/ Vomiting Past Medical History Cardiovascular History: Reports: High Cholesterol, Hypertension Musculoskeletal History: Reports: Osteoarthritis (Mostly involving his hands knees hips and low back) Social & Family History - Caffeine Use Caffeine Use: Reports: Coffee EKG INTERPRETATION EKG Date: 01/08/19 Time: 15:16 Rhythm: NSR Rate (Beats/Min): 82 Arnett: LAD-Left Arnett Deviation P-Wave: Present QRS: Normal ST-T: Normal QT: Normal Course - Orders/Labs/Meds Orders: Active Orders 24 hr Category Date Time Status Cardiac Monitoring [RC] . DIRECTED Care 01/08/19 15:12 Active EKG Documentation Completion [RC] STAT Care 01/08/19 15:13 Active Peripheral IV Care [RC] . DIRECTED Care 01/08/19 16:02 Active Ang Chest [CT] Stat Exams 01/08/19 16:02 Taken Sodium Chloride 0.9% [Normal Saline] 100 ml Med 01/08/19 16:30 Active IV ASDIRECTED Sodium Chloride 0.9% [Saline Flush] Med 01/08/19 16:02 Active 10 ml FLUSH ASDIRECTED PRN Peripheral IV Insertion Adult [OM.PC] Routine Oth 01/08/19 16:02 Ordered Medication Orders Sodium Chloride (Normal Saline) 100 mls @ 60 mls/hr IV ASDIRECTED MARIELA Sodium Chloride (Saline Flush) 10 ml FLUSH ASDIRECTED PRN PRN Reason: Keep Vein Open Last Admin: 01/08/19 16:40 Dose: 10 ml Labs: Laboratory Tests 01/08/19 01/08/19 01/08/19 Range/Units 15:25 15:25 15:25 WBC 6.23 (4.23-9.07) K/mm3 RBC 3.88 L (4.63-6.08) M/mm3 Hgb 12.0 L D (13.7-17.5) gm/L Hct 36.4 L (40.1-51.0) % MCV 93.8 H (79.0-92.2) fl MCH 30.9 (25.7-32.2) pg MCHC 33.0 (32.2-35.5) g/dl RDW Std Deviation 50.6 H (35.1-43.9) fL Plt Count 274 (163-337) K/mm3 MPV 9.5 (9.4-12.3) fl Neut % (Auto) 66.0 (34.0-67.9) % Lymph % (Auto) 13.3 L (21.8-53.1) % Trigg % (Auto) 18.8 H (5.3-12.2) % Eos % (Auto) 0.8 (0.8-7.0) Baso % (Auto) 0.8 (0.1-1.2) % Neut # (Auto) 4.11 (1.78-5.38) K/mm3 Lymph # (Auto) 0.83 L (1.32-3.57) K/mm3 Trigg # (Auto) 1.17 H (0.30-0.82) K/mm3 Eos # (Auto) 0.05 (0.04-0.54) K/mm3 Baso # (Auto) 0.05 (0.01-0.08) K/mm3 Manual Slide Review Abnormal smear D-Dimer, Quantitative 3.34 H (0.19-0.50) mg/L Sodium 135 L (136-145) mEq/L Potassium 4.0 (3.5-5.1) mEq/L Chloride 103 (98-107) mEq/L Carbon Dioxide 20 L (21-32) mEq/L Anion Gap 16.0 H (5-15) BUN 63 H D (7-18) mg/dL Creatinine 2.3 H (0.7-1.3) mg/dL Est Cr Clr Drug Dosing 32.87 mL/min Estimated GFR (MDRD) 29 (>60) mL/min BUN/Creatinine Ratio 27.4 H (14-18) Glucose 101 (80-115) mg/dL Calcium 8.7 (8.5-10.1) mg/dL Magnesium 2.2 (1.8-2.4) mg/dl Total Bilirubin 0.6 (0.2-1.0) mg/dL AST 91 H (15-37) U/L ALT 127 H (16-63) U/L Alkaline Phosphatase 59 (46-116) U/L Troponin I < 0.017 (0.00-0.056) ng/mL NT-Pro-B Natriuret Pep (0-125) pg/mL Total Protein 7.5 (6.4-8.2) g/dl Albumin 2.4 L (3.4-5.0) g/dl Globulin 5.1 gm/dL Albumin/Globulin Ratio 0.5 L (1-2) TSH 3rd Generation 2.361 (0.358-3.74) uIU/mL Urine Color (Yellow) Urine Appearance (Clear) Urine pH (5.0-8.0) Ur Specific [place] (1.005-1.030) Urine Protein (Negative) Urine Glucose (UA) (Negative) Urine Ketones (Negative) Urine Occult Blood (Negative) Urine Nitrite (Negative) Urine Bilirubin (Negative) Urine Urobilinogen (0.2-1.0) Ur Leukocyte Esterase (Negative) Urine RBC (0-5) /hpf Urine WBC (0-5) /hpf Ur Squamous Epith Cells (0-5) /hpf Urine Bacteria (FEW) /hpf Urine Mucus (FEW) /hpf 01/08/19 01/08/19 Range/Units 15:25 17:33 WBC (4.23-9.07) K/mm3 RBC (4.63-6.08) M/mm3 Hgb (13.7-17.5) gm/L Hct (40.1-51.0) % MCV (79.0-92.2) fl MCH (25.7-32.2) pg MCHC (32.2-35.5) g/dl RDW Std Deviation (35.1-43.9) fL Plt Count (163-337) K/mm3 MPV (9.4-12.3) fl Neut % (Auto) (34.0-67.9) % Lymph % (Auto) (21.8-53.1) % Trigg % (Auto) (5.3-12.2) % Eos % (Auto) (0.8-7.0) Baso % (Auto) (0.1-1.2) % Neut # (Auto) (1.78-5.38) K/mm3 Lymph # (Auto) (1.32-3.57) K/mm3 Trigg # (Auto) (0.30-0.82) K/mm3 Eos # (Auto) (0.04-0.54) K/mm3 Baso # (Auto) (0.01-0.08) K/mm3 Manual Slide Review D-Dimer, Quantitative (0.19-0.50) mg/L Sodium (136-145) mEq/L Potassium (3.5-5.1) mEq/L Chloride (98-107) mEq/L Carbon Dioxide (21-32) mEq/L Anion Gap (5-15) BUN (7-18) mg/dL Creatinine (0.7-1.3) mg/dL Est Cr Clr Drug Dosing mL/min Estimated GFR (MDRD) (>60) mL/min BUN/Creatinine Ratio (14-18) Glucose (80-115) mg/dL Calcium (8.5-10.1) mg/dL Magnesium (1.8-2.4) mg/dl Total Bilirubin (0.2-1.0) mg/dL AST (15-37) U/L ALT (16-63) U/L Alkaline Phosphatase (46-116) U/L Troponin I (0.00-0.056) ng/mL NT-Pro-B Natriuret Pep 517 H (0-125) pg/mL Total Protein (6.4-8.2) g/dl Albumin (3.4-5.0) g/dl Globulin gm/dL Albumin/Globulin Ratio (1-2) TSH 3rd Generation (0.358-3.74) uIU/mL Urine Color Light yellow (Yellow) Urine Appearance Clear (Clear) Urine pH 6.0 (5.0-8.0) Ur Specific [place] 1.010 (1.005-1.030) Urine Protein Negative (Negative) Urine Glucose (UA) Negative (Negative) Urine Ketones Negative (Negative) Urine Occult Blood Trace-lysed H (Negative) Urine Nitrite Negative (Negative) Urine Bilirubin Negative (Negative) Urine Urobilinogen 0.2 (0.2-1.0) Ur Leukocyte Esterase Negative (Negative) Urine RBC 0-5 (0-5) /hpf Urine WBC 0-5 (0-5) /hpf Ur Squamous Epith Cells 0-5 (0-5) /hpf Urine Bacteria Not seen (FEW) /hpf Urine Mucus Not seen (FEW) /hpf Meds: Medications Generic Name Dose Route Start Last Admin Trade Name Freq PRN Reason Stop Dose Admin Sodium Chloride 100 mls @ 60 mls/hr 01/08/19 16:30 Normal Saline IV ASDIRECTED MARIELA Sodium Chloride 10 ml 01/08/19 16:02 01/08/19 16:40 Saline Flush FLUSH 10 ml ASDIRECTED PRN Administration Keep Vein Open Discontinued Medications Generic Name Dose Route Start Last Admin Trade Name Freq PRN Reason Stop Dose Admin Sodium Chloride 1,000 mls @ 1,000 mls/hr 01/08/19 16:59 01/08/19 17:29 Normal Saline IV 01/08/19 17:58 1,000 mls/hr ONETIME ONE Administration Iopamidol 100 ml 01/08/19 16:19 01/08/19 16:40 Isovue-370 (76%) IVPUSH 01/08/19 16:20 100 ml ONETIME ONE Administration Sodium Chloride 10 ml 01/08/19 16:19 Saline Flush FLUSH 01/08/19 16:20 ONETIME ONE - Re-Assessments/Exams Free Text/Narrative Re-Assessment/Exam: 01/08/19 18:02 I examined the patient myself and I agree with Henry's assessment and plan. I ordered an EKG, labs and a UA. His EKG shows a NSR with no acute changes. His Hgb was 12. His D-dimer was elevated at 3.34. His Na was low at 135. His creatinine is elevated at 2.3. His GFR is low at 29. His has no history of kidney problems. I did not know his creatinine before his CT angio was ordered. I then ordered IV fluids after to help protect his kidneys. His AST was slightly elevated at 91. His ALT was elevated at 127. His troponin is negative. His BNP was slightly elevated at 517. His TSH is normal. I am waiting for his UA now. 01/08/19 18:06 His UA looks good. I will discharge him home after he gets more fluids. I will have him follow up with his doctor and possibly a pierogi maker for the heart murmur and a service assistant. Departure - Departure Time of Disposition: 18:10 Condition: Good - Discharge Information *PRESCRIPTION DRUG MONITORING PROGRAM REVIEWED*: No *COPY OF PRESCRIPTION DRUG MONITORING REPORT IN PATIENT ALPA: No - My Orders Last 24 Hours: My Active Orders 01/08/19 15:12 Cardiac Monitoring [RC] . DIRECTED 01/08/19 15:13 EKG Documentation Completion [RC] STAT 01/08/19 16:02 Peripheral IV Care [RC] . DIRECTED Ang Chest [CT] Stat Sodium Chloride 0.9% [Saline Flush] 10 ml FLUSH ASDIRECTED PRN Peripheral IV Insertion Adult [OM.PC] Routine 01/08/19 16:30 Sodium Chloride 0.9% [Normal Saline] 100 ml IV ASDIRECTED - Assessment/Plan Last 24 Hours: My Active Orders 01/08/19 15:12 Cardiac Monitoring [RC] . DIRECTED 01/08/19 15:13 EKG Documentation Completion [RC] STAT 01/08/19 16:02 Peripheral IV Care [RC] . DIRECTED Ang Chest [CT] Stat Sodium Chloride 0.9% [Saline Flush] 10 ml FLUSH ASDIRECTED PRN Peripheral IV Insertion Adult [OM.PC] Routine 01/08/19 16:30 Sodium Chloride 0.9% [Normal Saline] 100 ml IV ASDIRECTED
[2019-01-08] MEDS ORDERED: Sodium Chloride 0.9% 10 ML Syringe FLUSH PRN (16:02)
[2019-01-08] MEDS ORDERED: Sodium Chloride 0.9% 10 ML Syringe FLUSH ONE (16:19)
[2019-01-08] MEDS ORDERED: Iopamidol 755 Mg/ML 100 ML Bottle IVPUSH ONE (16:19)
[2019-01-08] MEDS ORDERED: Sodium Chloride 0.9% 100 ML IV SCH (16:30)
[2019-01-08] MEDS ORDERED: Sodium Chloride 0.9% 1,000 ML IV ONE (16:59)
--- NOTE | 2019-01-13 06:41 | CT ---
CT chest Technique: Multiple axial sections through the chest were obtained. Intravenous contrast was utilized. Study has been performed as a pulmonary angiogram protocol. Comparison: Prior chest CT study of 09/04/18. Findings: Pulmonary arteries are well opacified. No filling defects are definitely appreciated to indicate pulmonary embolism. Mediastinum shows no adenopathy. Minimal adenopathy noted within the right hilar region, this is similar to previous exam. No axillary adenopathy is seen. Small amount of extrapleural fat noted posteriorly within both lung bases. Lungs show no acute parenchymal change. Mild coronary artery calcification is seen. Bone window settings show endplate spurring within the mid and lower thoracic spine. No acute osseous abnormality is appreciated. Impression: 1. No findings of pulmonary embolism. 2. Other findings as noted above believed to be incidental. Nothing acute is appreciated. Diagnostic code #2 I agree with preliminary report from [facility], finalized on 01/08/19, 6:12 PM Central Time
== END 2019-01-08 18:18 | disposition home or self-care (01) ==
LOC: JD.ED 14:13
DX: R01.1 Cardiac murmur, unspecified (principal); R53.1 Weakness; N28.9 Disorder of kidney and ureter, unspecified; I10 Essential (primary) hypertension; E78.00 Pure hypercholesterolemia, unspecified; Z79.899 Other long term (current) drug therapy
CPT/HCPCS: 36415; 71275; 80053; 81001; 83735; 83880; 84443; 84484; 85025; 85379; 93005; 96360; 99285; J7040; Q9967; 93010; 99284

== ENCOUNTER 2019-02-08 17:29 | Emergency (ER) | payer BC ==
[2019-02-08] MEDS ORDERED: FLU Vacc QS2019-20(6MOS+)/PF 60 MCG/0.5 ML SYRINGE IM ONE (18:00)
--- NOTE | 2019-02-08 18:24 | EDM.PDOC ---
ED HPI GENERAL MEDICAL PROBLEM - General Chief Complaint: ENT Problem Stated Complaint: NOSE BLEED Time Seen by Provider: 02/08/19 17:45 Source of Information: Reports: Patient, Family (Brother, [id number]) History Limitations: Reports: No Limitations - History of Present Illness INITIAL COMMENTS - FREE TEXT/NARRATIVE: Mr. An is a very pleasant 63-year-old man with a past medical history significant for a pulmonary embolus suffered in August of this year, for which he was treated with Xarelto for 3 months. He was then diagnosed with diffuse large B-cell lymphoma earlier this month. He has had a decreased appetite and lost approximately 15 pounds over the past month. The lymphoma is early stage, but an aggressive grade. The patient will be evaluated for treatment at [facility] this coming 02/11/2019. The patient now presents to the ED after developing painless left epistaxis around 02:30 this morning. He denies any trauma to his nose, but acknowledges that he does not have a humidifier or vaporizer in his bedroom. He has been treating the epistaxis with an ice pack only, without pinching his nose. He states that the epistaxis has started and stopped 2 or 3 times today, on its own. Here in the ED, there is no active bleeding. The patient's PCP is Dr. Abiodun Conti. His Oncologist is Dr. Corey Franks. His Medical Communication Specialist is Dr. Allie De La Torre. - Related Data Allergies Allergy/AdvReac Type Severity Reaction Status Date / Time No Known Allergies Allergy Verified 02/08/19 17:37 Home Meds: Home Meds Allopurinol [Zyloprim] 100 mg PO DAILY 02/08/19 [History] Multivitamin [Multiple Vitamins] 1 tab PO DAILY 02/08/19 [History] Past Medical History HEENT History: Reports: Impaired Vision (wears reading glasses) Cardiovascular History: Reports: High Cholesterol (untreated), Hypertension ( untreated) Respiratory History: Reports: PE (August 2018) Musculoskeletal History: Reports: Osteoarthritis Endocrine/Metabolic History: Reports: Obesity/BMI 30+ Oncologic (Cancer) History: Reports: Non-Hodgkin's Lymphoma (diffuse large B- cell dx'd Jan 2019) - Infectious Disease History Infectious Disease History: Reports: Chicken Pox, Measles, Mumps - Past Surgical History HEENT Surgical History: Reports: Oral Surgery (dental implants) GI Surgical History: Reports: Appendectomy, Hernia, Abdominal (umbilical) Oncologic Surgical History: Reports: Bone Marrow Aspiration, Other (See Below) ( Lymph node biopsy) Social & Family History - Family History Family Medical History: Noncontributory - Tobacco Use Smoking Status *Q: Former Smoker Years of Tobacco use: 21 Packs/Tins Daily: 1 Month/Year Tobacco Last Used: Quit 1992 - Caffeine Use Caffeine Use: Reports: None - Alcohol Use Alcohol Use History: No - Recreational Drug Use Recreational Drug Use: No - Living Situation & Occupation Living situation: Reports: Single, Alone Occupation: Unemployed ED ROS ENT - Review of Systems Review Of Systems: ROS reveals no pertinent complaints other than HPI. ED EXAM, ENT - Physical Exam Exam: See Below Exam Limited By: No Limitations Eye Exam: Bilateral Eye: EOMI, Normal Inspection Ears: Normal External Exam, Normal Canal, Hearing Grossly Normal, Normal TMs Nose: Other (A large adherent clot was found in the left nostril, which I was able to remove using cotton swabs. Once removed, the left septal membrane appear to be corrugated, with numerous small vessels, but no individual prominent vessel.) Mouth/Throat: Normal Inspection, Normal Gums, Normal Lips, Normal Oropharynx ( No posterior oropharyngeal blood seen), Normal Teeth Head: Atraumatic, Normocephalic Neck: Normal Inspection, Supple, Non-Tender, Full Range of Motion. No: Lymphadenopathy (L), Lymphadenopathy (R) ED ENT PROCEDURES - Epistaxis Procedure Indication: Epistaxis, Controlled Recent anticoagulants/antiplatlets: No Uncontrolled HTN: No Recent septal/nasal surgery: No Site of bleeding: Left Nare, Anterior Clearing of clots: Patient Blew Nose, Other (Removed with cotton swabs) Chemical cautery: Silver Nitrate Topical Complications: No Course - Vital Signs Last Recorded V/S: Last Vital Signs Temp 37.3 C 02/08/19 17:34 Pulse 117 H 02/08/19 17:34 Resp 19 02/08/19 17:34 BP 147/88 H 02/08/19 17:34 Pulse Ox 94 L 02/08/19 17:34 - Orders/Labs/Meds Meds: Medications Discontinued Medications Generic Name Dose Route Start Last Admin Trade Name Freq PRN Reason Stop Dose Admin Influenza Virus Vaccine 1 each 02/08/19 17:44 Pharmacy To Dose - Influenza Vaccine IM 02/08/19 17:45 ONETIME ONE Influenza Virus Vaccine 60 mcg 02/08/19 18:00 Fluzone Quad [id number] Syringe IM 02/08/19 18:01 .ONCE ONE - Re-Assessments/Exams Free Text/Narrative Re-Assessment/Exam: 02/08/19 18:22 After a large clot was removed from the patient's left nare, inspection revealed a corrugated appearance to the left nasal septum, with no individual obvious visible vessel. After discussion with the patient about the pros and cons of cautery, the patient elected to proceed with cautery. The corrugated area was subsequently cauterized using a silver nitrate stick. Postprocedure, no bleeding was seen. The patient tolerated the procedure well. Going forward, I will have the patient purchase a humidifier or vaporizer for his bedroom, and apply thin smear of petroleum jelly to both of his nostrils once or twice a day. I explained to the patient how he should manage a nosebleed , should it recur, but if he continues to have nosebleeds, he should follow-up with an ENT. Departure - Departure Time of Disposition: 18:24 Disposition: Home, Self-Care 01 Condition: Good Clinical Impression: Left-sided epistaxis - Discharge Information *PRESCRIPTION DRUG MONITORING PROGRAM REVIEWED*: Not Applicable *COPY OF PRESCRIPTION DRUG MONITORING REPORT IN PATIENT ALPA: Not Applicable Instructions: Nosebleed, [id number] Referrals: Abiodun Conti MD [Primary Care Provider] - Allie De La Torre MD [Physician] - Corey Franks MD [Ordering Only Provider] - Forms: ED Department Discharge Additional Instructions: You were seen in the emergency room for and on-and-off left-sided nosebleed today. On examination, the bleeding had stopped, but a likely area of bleeding was found. The likely area of bleeding in her left nostril was cauterized. Going forward, we recommend that you purchase a humidifier or vaporizer for your bedroom, which should be used all winter. We recommend that you apply a thin film of the petroleum jelly to each nostril, once or twice a day, to help keep the mucous membranes moist. If the nosebleed occurs, we recommend you sit straight upright, tilt your head slightly forward, and pinch your nostrils tightly for 10-15 minutes. If that does not stop your nosebleed, return to the ER for evaluation. If you continue to have nosebleeds, you should follow-up with an ENT in [place].
== END 2019-02-08 18:44 | disposition home or self-care (01) ==
LOC: JD.ED 17:29
DX: R04.0 Epistaxis (principal); I10 Essential (primary) hypertension; E66.9 Obesity, unspecified; Z68.32 Body mass index [BMI] 32.0-32.9, adult; Z87.891 Personal history of nicotine dependence
CPT/HCPCS: 30901; 30905; 99282; 99283-25

== ENCOUNTER 2019-03-26 18:18 | Emergency (ER) | payer BC ==
[2019-03-26] MEDS ORDERED: HYDROmorphone 1 MG/ML Syringe IVPUSH STA (18:48)
[2019-03-26] MEDS ORDERED: Ondansetron 4 MG/2 ML SDV IVPUSH ONE (18:48)
[2019-03-26] MEDS ORDERED: Sodium Chloride 0.9% 1,000 ML IV SCH (19:00)
--- NOTE | 2019-03-26 19:08 | EDM.PDOC ---
ED HPI GENERAL MEDICAL PROBLEM - General Chief Complaint: Back Pain or Injury Stated Complaint: BACK PAIN Time Seen by Provider: 03/26/19 18:34 Source of Information: Reports: Patient, RN Notes Reviewed History Limitations: Reports: No Limitations - History of Present Illness INITIAL COMMENTS - FREE TEXT/NARRATIVE: Patient is a 63-year-old male who presents to the ED for evaluation of lower back and hip pain. Patient notes that he has a diagnosis of Non-Hodgkin lymphoma. He last had chemo last week, and is due again on April 09. He states he gets chemo every 3 weeks. The patient notes that a few days ago he had a right side ache, but this afternoon this developed into lower back and hip pain, this is a dull ache, with some movements it is a sharp stabbing pain in nature. He denies any history of chronic back issues. He did not take any medications for this. He denies a history of kidney stones. He denies any urinary issues like frequency or urgency, or blood in the urine. He further denies any fever/chills, cough/shortness of breath, chest pain, nausea/vomiting/ diarrhea. He further notes that he feels slightly constipated, and states he had a bowel movement yesterday, but still feels quite full. He has been using stool softeners. Upper Back Pain Score (Numeric/FACES): 6 - Related Data Allergies Allergy/AdvReac Type Severity Reaction Status Date / Time No Known Allergies Allergy Verified 02/08/19 17:37 Home Meds: Home Meds Allopurinol [Zyloprim] 100 mg PO DAILY 02/08/19 [History] Multivitamin [Multiple Vitamins] 1 tab PO DAILY 02/08/19 [History] Docusate Sodium [Stool Softener] 2 tab PO DAILY 03/26/19 [History] Past Medical History HEENT History: Reports: Impaired Vision Other HEENT History: reading glasses Cardiovascular History: Reports: High Cholesterol, Hypertension Other Cardiovascular History: Leaky Valve Respiratory History: Reports: PE Gastrointestinal History: Reports: None Genitourinary History: Reports: None Musculoskeletal History: Reports: Osteoarthritis Neurological History: Reports: None Psychiatric History: Reports: None Endocrine/Metabolic History: Reports: Obesity/BMI 30+ Hematologic History: Reports: None Immunologic History: Reports: None Oncologic (Cancer) History: Reports: Non-Hodgkin's Lymphoma Dermatologic History: Reports: Other (See Below) Other Dermatologic History: eczema - Infectious Disease History Infectious Disease History: Reports: Chicken Pox, Measles, Mumps - Past Surgical History Head Surgeries/Procedures: Reports: None HEENT Surgical History: Reports: Oral Surgery GI Surgical History: Reports: Appendectomy, Hernia, Abdominal Oncologic Surgical History: Reports: Bone Marrow Aspiration, Other (See Below) Social & Family History - Family History Family Medical History: Noncontributory - Tobacco Use Smoking Status *Q: Former Smoker Used Tobacco, but Quit: Yes Month/Year Tobacco Last Used: 1992 - Caffeine Use Caffeine Use: Reports: Coffee, Tea - Recreational Drug Use Recreational Drug Use: No - Living Situation & Occupation Living situation: Reports: Single, Alone Occupation: Unemployed ED ROS GENERAL - Review of Systems Review Of Systems: See Below Constitutional: Reports: Weakness (generalized, not more than normal). Denies: Fever, Chills HEENT: Reports: No Symptoms Respiratory: Denies: Shortness of Breath Cardiovascular: Denies: Chest Pain Endocrine: Reports: No Symptoms GI/Abdominal: Denies: Abdominal Pain, Nausea, Vomiting : Reports: Flank Pain (R flank discomfort a few days ago) Musculoskeletal: Reports: Back Pain (low back pain ) Skin: Reports: No Symptoms Neurological: Reports: No Symptoms Psychiatric: Reports: No Symptoms Hematologic/Lymphatic: Reports: Other (hx/o lymphoma) Immunologic: Reports: No Symptoms ED EXAM,LOWER BACK PAIN/INJURY - Physical Exam Exam: See Below Exam Limited By: No Limitations General Appearance: Alert, WD/WN, No Apparent Distress (pt appears uncomfortable on ED cot, he seems to not be able to find a comfortable position. ) Throat/Mouth: Normal Inspection, Normal Lips, Normal Teeth, Normal Gums, Normal Oropharynx, Normal Voice, No Airway Compromise Head: Atraumatic, Normocephalic Neck: Normal Inspection Respiratory/Chest: No Respiratory Distress, Lungs Clear, Normal Breath Sounds, No Accessory Muscle Use, Chest Non-Tender Cardiovascular: Normal Peripheral Pulses, Regular Rate, Rhythm, No Edema, No Murmur GI/Abdominal: Normal Bowel Sounds, Soft, Non-Tender, No Distention, No Mass Back Exam: Normal Inspection, Full Range of Motion. No: CVA Tenderness (L), CVA Tenderness (R) Extremities: Normal Inspection, Normal Range of Motion, Normal Capillary Refill Neurological: Alert, Normal Mood/Affect, Normal Dorsiflexion, Normal Plantar Flexion, Normal Gait, Normal Reflexes, No Motor/Sensory Deficits, Oriented x 3. No: Straight Leg Raise (L), Straight Leg Raise (R), Saddle Anesthesia Psychiatric: Normal Affect, Normal Mood Skin Exam: Warm, Dry, Intact, No Rash, Pallor (generalized, he states this is his normal color) Course - Vital Signs Last Recorded V/S: Last Vital Signs Temp 98.3 F 03/26/19 18:35 Pulse 87 03/26/19 18:35 Resp 20 03/26/19 18:35 BP 139/74 03/26/19 18:35 Pulse Ox 95 03/26/19 18:35 - Orders/Labs/Meds Orders: Active Orders 24 hr Category Date Time Status Strain Urine [RC] ASDIRECTED Care 03/26/19 18:49 Active Labs: Laboratory Tests 03/26/19 Range/Units 19:25 Urine Color Yellow (Yellow) Urine Appearance Clear (Clear) Urine pH 7.5 (5.0-8.0) Ur Specific [place] 1.020 (1.005-1.030) Urine Protein Negative (Negative) Urine Glucose (UA) Negative (Negative) Urine Ketones Negative (Negative) Urine Occult Blood Negative (Negative) Urine Nitrite Negative (Negative) Urine Bilirubin Negative (Negative) Urine Urobilinogen 0.2 (0.2-1.0) Ur Leukocyte Esterase Negative (Negative) Urine RBC Not seen (0-5) /hpf Urine WBC 0-5 (0-5) /hpf Ur Squamous Epith Cells 0-5 (0-5) /hpf Urine Bacteria Not seen (FEW) /hpf Urine Mucus Not seen (FEW) /hpf Meds: Medications Discontinued Medications Generic Name Dose Route Start Last Admin Trade Name Freq PRN Reason Stop Dose Admin Hydromorphone HCl 0.5 mg 03/26/19 18:48 03/26/19 19:30 Dilaudid IVPUSH 03/26/19 18:49 0.5 mg ONETIME STA Administration Hydromorphone HCl 0.5 mg 03/26/19 20:24 03/26/19 20:34 Dilaudid IVPUSH 03/26/19 20:25 0.5 mg ONETIME ONE Administration Sodium Chloride 1,000 mls @ 150 mls/hr 03/26/19 19:00 03/26/19 19:30 Normal Saline IV 150 mls/hr ASDIRECTED MARIELA Administration Magnesium Citrate 296 ml 03/26/19 20:23 03/26/19 20:35 Citrate Of Magnesia PO 03/26/19 20:24 296 ml ONETIME ONE Administration Ondansetron HCl 4 mg 03/26/19 18:48 03/26/19 19:29 Zofran IVPUSH 03/26/19 18:49 4 mg ONETIME ONE Administration - Re-Assessments/Exams Free Text/Narrative Re-Assessment/Exam: 03/26/19 19:10 Patient presents to the ED for evaluation of lower back pain. His history is somewhat suspicious for a kidney stone in nature, due to him not being will find a comfortable spot on the ED cot I will get a urine, abdomen pelvis CT with out contrast, give him some IV fluids and 0.5 mg Dilaudid with 4 mg Zofran for initial management. If urinalysis demonstrates no blood in the urine, and CT is clean will do further investigation. 03/26/19 20:58 CT is back, and demonstrates small mid abdominal aortic aneurysm measuring 2.8 cm in AP dimension. No renal calculi, ureteral dilatation, or ureteral stone is seen. Colonic diverticuli without diverticulitis. Mild increased stool throughout the colon. Otherwise no other acute abnormality is were appreciated on the CT today. I did go over the CT results with the patient, I will treat with magnesium citrate for constipation, and have him seek care for evaluation if the pain is not changed after a few large bowel movements after magnesium citrate. He is understanding of this, and agrees to comply. Departure - Departure Time of Disposition: 20:59 Disposition: Home, Self-Care 01 Condition: Fair Clinical Impression: Constipation Qualifiers: Constipation type: other constipation type Qualified Code(s): K59.09 - Other constipation - Discharge Information *PRESCRIPTION DRUG MONITORING PROGRAM REVIEWED*: No *COPY OF PRESCRIPTION DRUG MONITORING REPORT IN PATIENT ALPA: No Instructions: Constipation, Adult, [id number] Referrals: Abiodun Conti MD [Primary Care Provider] - Forms: ED Department Discharge Additional Instructions: You were evaluated in the ER today regarding your back pain. An abdominal CT was obtained, and demonstrates that you do have quite a large amount of stool within your colon, but you did not have any sort of kidney stones. This also did demonstrate a mid aorta abdominal aneurysm, with a dimension of 2.8 cm. This is something that you will need to follow-up with your primary care provider, Dr. Conti for further management and follow-up. Your urinalysis was also negative for any sort of bacterial infection at this time. You were given a bottle of magnesium citrate, you took one half of the bottle in ER, if you should not get a rather large bowel movement in 3 to 4 hours, repeat with the second half bottle. Recommend that if your pain does not get much better after you have had 1 or 2 large bowel movements, that you seek care for further evaluation. Please return to the ER at any time if your symptoms change or worsen. - My Orders Last 24 Hours: My Active Orders 03/26/19 18:49 Strain Urine [RC] ASDIRECTED - Assessment/Plan Last 24 Hours: My Active Orders 03/26/19 18:49 Strain Urine [RC] ASDIRECTED
--- NOTE | 2019-03-26 20:10 | CT ---
CT abdomen and pelvis Technique: Multiple axial sections were obtained from above the dome of the diaphragm inferiorly through the pubic symphysis. Intravenous and oral contrast was not utilized. Comparison: No prior abdominal imaging. Findings: Kidneys show no abnormal calcifications. No ureteral dilatation or ureteral stone is seen. Visualized lung bases show nothing acute. Noncontrast appearance of the liver and spleen shows no focal parenchymal abnormality. Adrenal glands show no nodule. Pancreas shows no abnormality. Gallbladder contains no calcified gallstones. Aorta shows atherosclerotic calcification which continues into the iliac vessels. Mid aorta shows mild focal aneurysm best noted on the sagittal reconstruction views with AP dimension of 2.8 cm.. Diverticuli are scattered within the colon without inflammatory change of diverticulitis. Bladder shows no abnormal calcifications. No pelvic mass or adenopathy is seen. No free fluid or inflammatory change is seen. Appendix not visualized with certainty. Mild increased stool is seen throughout the colon. Bone window settings were reviewed which shows mild degenerative change scattered within the spine. No acute osseous finding is appreciated. Impression: 1. Small mid abdominal aortic aneurysm measuring 2.8 cm in AP dimension. 2. No renal calculi, ureteral dilatation or ureteral stone is seen. 3. Colonic diverticuli without diverticulitis. 4. Mild increased stool throughout the colon. 5. Nothing acute is otherwise appreciated on CT study of the abdomen and pelvis performed as a ureteral stone protocol. Diagnostic code #2 This report was dictated in [place] Standard Time
[2019-03-26] MEDS ORDERED: Magnesium Citrate Solution 296 ML Bottle PO ONE (20:23)
[2019-03-26] MEDS ORDERED: HYDROmorphone 0.5 MG/0.5 ML Syringe IVPUSH ONE (20:24)
== END 2019-03-26 21:15 | disposition home or self-care (01) ==
LOC: JD.ED 18:18
DX: K59.09 Other constipation (principal); I10 Essential (primary) hypertension; E66.9 Obesity, unspecified; Z87.891 Personal history of nicotine dependence; Z68.29 Body mass index [BMI] 29.0-29.9, adult
CPT/HCPCS: 74176; 81001; 96361; 96374; 96375; 96376; 99284; A9270; J1170; J2405; J7040; 99283; J7030

== ENCOUNTER 2021-06-06 22:17 | Emergency (ER) | payer MEDICARE, BC ==
[2021-06-06] MEDS ORDERED: Ondansetron 4 MG/2 ML SDV IVPUSH ONE (22:49)
[2021-06-06] MEDS ORDERED: HYDROmorphone 0.5 MG/0.5 ML Syringe IVPUSH ONE (22:49)
[2021-06-07] MEDS ORDERED: Sodium Chloride 0.9% 1,000 ML IV SCH (01:00)
== END 2021-06-07 02:42 | disposition home or self-care (01) ==
LOC: JD.ED 22:17
DX: R07.9 Chest pain, unspecified (principal); M19.90 Unspecified osteoarthritis, unspecified site; E66.9 Obesity, unspecified; Z68.41 Body mass index [BMI] 40.0-44.9, adult; Z79.899 Other long term (current) drug therapy; Z87.891 Personal history of nicotine dependence; Z20.822 Contact with and (suspected) exposure to COVID-19
CPT/HCPCS: 36415; 71045; 71275; 80048; 83880; 84484; 85025; 85379; 93005; 96374; 96375; 99285; J1170; J2405; J7030; U0002; 93010